=== PATIENT | female | born 1955 | race African-American/Black ===

== ENCOUNTER 2020-01-24 15:49 | Emergency (ER) | payer MEDICAID, OTHER ==
[~2020-01-24] VITALS: Ht 172.7 cm; Wt 71.0 kg
[2020-01-24] MEDS ORDERED: HYDROCODONE/ACETAMINOPHEN 5/325MG TABLET PO ONE (18:15)
[2020-01-24 19:56] VITALS: BP 188/98
== END 2020-01-24 20:01 | disposition home or self-care (01) ==
LOC: ER 15:49
DX: S09.8XXA Other specified injuries of head, initial encounter (principal); W01.0XXA Fall on same level from slipping, tripping and stumbling without subsequent striking against object, initial encounter; Y93.89 Activity, other specified; Y92.89 Other specified places as the place of occurrence of the external cause
CPT/HCPCS: 93005; 99284